=== PATIENT | male | born 1960 | race Hispanic/Latino ===

== ENCOUNTER 2019-05-31 17:11 | Emergency (ER) | payer BC, SELFPAY ==
[~2019-05-31 17:11] MED LIST: ISOVUE-370 76%-LOCM 1 ML ONE
[2019-05-31] MEDS ORDERED: Ketorolac Tromethamine 30 MG/ML VIAL ONE (17:32)
[2019-05-31] MEDS ORDERED: Morphine 4 MG/ML VIAL ONE (17:32)
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
[2019-05-31 18:59] LABS: #Basophils 0.1 thou/uL (0.0-0.2); #Eosinphils 0.1 thou/uL (0.0-0.7); #Lymphocytes 1.7 thou/uL (1.20-3.40); #Monocytes 0.7 thou/uL (0.11-0.59); #Neutrophils 5.4 thou/uL (1.40-6.50); %Basophils 0.8 % (0.0-1.0); %Eosinophils 1.6 % (0.0-10.0); %Lymphocytes 21.1 % (21.0-51.0); %Monocytes 8.5 % (0.0-10.0); Hemoglobin 16.8 g/dL (14.0-18.0); Mean Corpuscular HGB CONC 35.4 g/dL (32.0-36.0); Mean Corpuscular Hemoglobin 31.2 pg (27.0-31.0); Mean Corpuscular Volume 88.1 fL (78.0-98.0); Platelet Count 153 thou/uL (130-400); RBC Distribution Width 11.9 % (11.5-14.5); White Blood Cell (WBC) Count 7.9 thou/uL (4.8-10.8)
[2019-05-31 19:20] LABS: ALT (SGPT) 36 U/L (8-55); AST (SGOT) 22 U/L (5-34); Albumin 4.2 g/dL (3.5-5.0); Alkaline Phosphatase 88 U/L (40-150); Anion Gap 14 mmol/L (10-20); BUN (Urea Nitrogen) 20 mg/dL (8.4-25.7); Bilirubin, Total 0.6 mg/dL (0.2-1.2); Calc. Creatinine Clearance 0 mL/min (70-130); Calcium 8.7 mg/dL (7.8-10.44); Carbon Dioxide 22 mmol/L (22-29); Chloride 107 mmol/L (98-107); Estimated GFR-MDRD 64; Globulin 2.7 g/dL (2.4-3.5); Glucose 114 mg/dL (70-105); Potassium 4.1 mmol/L (3.5-5.1); Protein, Total 6.9 g/dL (6.0-8.3); Sodium 139 mmol/L (136-145)
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
== END 2019-05-31 20:12 | disposition home or self-care (01) ==
LOC: ERS 17:11
DX: S13.4XXA Sprain of ligaments of cervical spine, initial encounter (principal); S30.0XXA Contusion of lower back and pelvis, initial encounter; E11.9 Type 2 diabetes mellitus without complications; Z79.82 Long term (current) use of aspirin; Z79.4 Long term (current) use of insulin; Z79.899 Other long term (current) drug therapy; V43.52XA Car driver injured in collision with other type car in traffic accident, initial encounter
CPT/HCPCS: 36415; 71045; 72125; 74177; 80053; 84484; 85025; 93005; 96361; 96374; 96375; J1885; J2270; Q9966